=== PATIENT | female | born 1975 | race Caucasian/White ===

== ENCOUNTER 2017-07-18 09:44 | Observation (INO) | payer MEDICAID, SELFPAY ==
[2017-07-18 09:45] VITALS: BP 124/79; PULSE 129; RESP 12; TEMP 36.3; BMI 25.9
[2017-07-18 10:30] LABS: Absolute Lymphocyte Count 1.29 X10^3/ul (0.83-4.51); Absolute Neutrophil Count 11.3 X10^3/uL (2.0-7.7); Basophil# 0.02 X10^3/uL; Basophil% 0.1 % (0-1); Eosinophil# 0.04 X10^3/uL; Eosinophils% 0.3 % (0-5); Hematocrit 38.4 % (37-47); Hemoglobin 12.6 g/dl (12.0-15.0); Lymphocyte # 1.29 X10^3/ul (4.0); Lymphocyte % 9.6 % (19-41); Mean Corp Hgb Conc 32.8 g/gl (32-36); Mean Corpuscular Hgb 29.4 pg (27.0-32.0); Mean Corpuscular Volume 89.5 fL (81-99); Mean Platelet Vol. 10.1 fl (6.2-12.0); Monocyte# 0.84 X10^3/uL; Monocyte% 6.2 % (0-10); Neutrophil # 11.26 X10^3/uL (2.7-7.7); Neutrophil % 83.7 % (47-70); Platelet Count 324 K/mm3 (150-450); RBC Distribution Width CV 13.7 % (11.6-14.6); RBC Distribution Width SD 44.7 fl (35.1-43.9); Red Blood Count 4.29 M/mm3 (4.2-5.4); White Blood Count 13.5 K/mm3 (4.4-11.0)
[2017-07-18 10:38] LABS: POSITIVE COUNT NO; POSITIVE DIFFERENTIAL NO; POSITIVE MORPHOLOGY NO
[2017-07-18 10:50] LABS: Anion Gap 8 (5-15); BUN 7 mg/dL (7-18); BUN/Creat Ratio 8.8 RATIO (10-20); Chloride 104 mmol/L (98-107); EST Glomerular Filtration Rate 84 mL/min (>60); Est Glom Filt Rate - Afr Amer 102 mL/min (>60); Glucose 98 mg/dL (70-110); Potassium 3.9 mmol/L (3.5-5.1); Sodium Level 137 mmol/L (136-145)
--- NOTE | 2017-07-18 12:01 | ED.RN ---
THIS NURSE ATTEMPTED X2 TO OBTAIN BLOOD CULTURES, NO SUCCESS, RAYNE FOLEY,MEDIC, ATTEMPTED NO SUCCESS, LAB CALLED AND NOTIFIED THAT PT NEEDS 2 SETS OF BLOOD CULTURES & LACTIC. LAB WILL SENT SOMEONE TO OBTAIN LABS.
--- NOTE | 2017-07-18 12:09 | ED.RN ---
Addendum entered by Ericka Solomon 07/18/17 13:09: MANNY, FROM LAB OBTAINED CULTURES & LACTIC. Original Note: DR. LANDRY AWARE, NO SUCCESS ON OBTAINING LABS. ARRON FROM LAB PRESENT IN PT'S ROOM TO OBTAIN LABS.
--- NOTE | 2017-07-18 12:14 | ED.VISSUMM ---
- ER Visit Summary Date of Service: 07/18/17 Chief Complaint: Abscess History of Present Illness: The patient is a 42 F who presents with an abscess and redness and pain of her right thigh. 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 About 1 week ago she noticed a red raised painful area on the back of her right thigh. She saw her primary care physician and was started on doxycycline. After several days without improvement she was seen at [facility] emergency department. She is was switched to Keflex and Bactrim. She continues to worsen. Today she began to have some spontaneous purulent drainage. She denies fevers nausea vomiting or systemic symptoms. Physical Examination: Afebrile initial heart rate 129 vitals otherwise unremarkable Moist mucous membranes Heart regular rhythm tachycardia, at the time of my evaluation heart rate 104 Lungs are clear Abdomen soft There is a large area of cellulitis along the posterior right thigh with central fluctuance no active drainage Test Results: X-ray studies notable for white blood cell count of 13.5. Emergency Department Course and Treatment: She was treated with IV fluids and IV vancomycin. Her abscess was locally anesthetized with 1% lidocaine and a cruciate incision made with a #11 blade. Loculations were broken up with curved hemostats and quarter inch packing was placed. Abscess did track several centimeters. I spoke to the hospitalist who agreed to admit. They also requested surgical consultation. Dr. Rangel also evaluated the patient here in the emergency department. Patient will be admitted. At the time of this dictation lactic acid and blood cultures are currently pending. Treatment Plan: [] Disposition: Admit Impression: Thigh abscess with cellulitis Incision and drainage of right thigh abscess This note was generated with [employer] dictation software. It may contain incorrect words, spelling, and punctuation that were not noted in review of the chart prior to signing ED Disposition - Plan for ED Patient: Chief Complaint: Abscess Referrals: Vanessa Silveira DO [Primary Care Provider] -
--- NOTE | 2017-07-18 12:17 | ED.DCSUM_ITS ---
- ER Visit Summary Date of Service: 07/18/17 Chief Complaint: Abscess History of Present Illness: The patient is a 42 F who presents with an abscess and redness and pain of her right thigh. 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 About 1 week ago she noticed a red raised painful area on the back of her right thigh. She saw her primary care physician and was started on doxycycline. After several days without improvement she was seen at [place] emergency department. She is was switched to Keflex and Bactrim. She continues to worsen. Today she began to have some spontaneous purulent drainage. She denies fevers nausea vomiting or systemic symptoms. Physical Examination: Afebrile initial heart rate 129 vitals otherwise unremarkable Moist mucous membranes Heart regular rhythm tachycardia, at the time of my evaluation heart rate 104 Lungs are clear Abdomen soft There is a large area of cellulitis along the posterior right thigh with central fluctuance no active drainage Test Results: X-ray studies notable for white blood cell count of 13.5. Emergency Department Course and Treatment: She was treated with IV fluids and IV vancomycin. Her abscess was locally anesthetized with 1% lidocaine and a cruciate incision made with a #11 blade. Loculations were broken up with curved hemostats and quarter inch packing was placed. Abscess did track several centimeters. I spoke to the hospitalist who agreed to admit. They also requested surgical consultation. Dr. Rangel also evaluated the patient here in the emergency department. Patient will be admitted. At the time of this dictation lactic acid and blood cultures are currently pending. Treatment Plan: [] Disposition: Admit Impression: Thigh abscess with cellulitis Incision and drainage of right thigh abscess This note was generated with [employer] dictation software. It may contain incorrect words, spelling, and punctuation that were not noted in review of the chart prior to signing ED Disposition - Plan for ED Patient: Chief Complaint: Abscess Referrals: Vanessa Silveira DO [Primary Care Provider] -
[2017-07-18] MEDS: 0.9% Normal Saline 1,000 ML 999 ML IV (12:46)
[2017-07-18 12:50] VITALS: BP 111/76; PULSE 78; RESP 16; TEMP 37.2; O2SAT 97
--- NOTE | 2017-07-18 12:52 | CON.PCM_ITS ---
- Consult Date of Consult: 07/18/17 - Reason for Consult Chief Complaint: right posterior leg infection History of Present Illness: 42 y/o WF presents with right posterior leg infection. She states that she sustained it while she was in residential. She states that other residential members had MRSA infections. She denies trauma to that area. She has had multiple skin infections in the past, in various places throughout her body. Denies previous skin infection at the present site. Past Medical History: TOB use Hx of IV drug use Past Surgical History: denies Medications: pepcid neurontin Allergies: Has no known drug allergies Social history: TOB use < 1ppd Hx of IV drug use Review of Systems: General - denies anorexia Cardiovascular denies chest pain Pulmonary denies coughing up blood Gastrointestinal denies blood in stools Neurological denies seizures Genitourinary denies blood in urine Hematological denies spontaneous/prolonged bleeding Skin see HPI Musculoskeletal denies arthritis Endocrine denies diabetes Psychological hx of IV drug use, TOB dependence Physical examination: Vital signs 97.5F HR 69 RR 16 BP 111/66 General WD/WN WF in no apparent distress, alert and oriented, not septic appearing HEENT Normocephalic. EOM intact with sclera clear and no icterus noted. Neck is supple with no jugular venous distention noted. Trachea is midline. Lungs clear to auscultation. normal breath sounds in all lung [place]. No rales/rhonchi/wheezing noted. No labored breathing noted, such as retractions. No cough heard. Heart normal S1 and S2 auscultated. No rubs/clicks/murmurs noted. Abdomen soft and benign. Normal bowel sounds Extremities right posterior leg with large area of cellulitis but no fluctuance - wound opening noted - draining Genitourinary/Rectal deferred Skin see above Neurological no focal deficits Psychological normal affect, patient is calm and appropriate Impression: right posterior leg cellulitis Discussion/Plan: I have discussed the above with the patient. At this point, I do not suspect need for further surgical intervention. Continue treatment with IV antibiotics. Consider evaluation for bacterial endocarditis - as patient has had numerous episodes of this type of infection and hx of IV drug use Will follow patient with you I have answered all questions to the patient?s satisfaction and the patient has no further questions.
[2017-07-18 13:14] LABS: Lactic Acid 0.9 mmol/L (0.4-2.0)
[2017-07-18 13:26] VITALS: BMI 25.5; BMI 25.6
--- NOTE | 2017-07-18 16:00 | NURSING ---
wound photo: right posterior thigh
[2017-07-18] MEDS: Gabapentin 400 MG Capsule PO (16:45)
[2017-07-18 16:53] LABS: Probe Check PASS; Staph aureus DNA By PCR POSITIVE (Negative)
[2017-07-18 16:55] LABS: M R Staph aureus DNA By PCR POSITIVE (Negative)
[2017-07-18 21:02] VITALS: BP 98/51; PULSE 82; RESP 16; TEMP 37.7; O2SAT 98
[2017-07-18] MEDS: Famotidine 20 MG Tablet PO (21:04)
--- NOTE | 2017-07-18 22:27 | PCM.HP.STD ---
Problem List (1) Abscess of right leg Status: Acute History of Present Illness Date of Admission: 07/18/17 Chief Complaint: Abscess right leg The patient is a 42 year old F emergency room at [facility] with chief complaint of a reddened raised area on the back of her right upper leg. Patient has been treated over the past several days with oral antibiotics including Vibramycin, Bactrim, and Keflex. Patient noticed pain and redness and a raised area on the back of her right upper leg approximately a week ago. Patient noted today that it was draining purulent material and came to the emergency room for evaluation. Patient denies any fever or chills. Labs were remarkable for an elevated white blood cell count 13.5, patient was afebrile. Emergency room physician examined the posterior aspect of the right upper leg and there was noted to be erythematous raised area on the posterior portion of the right upper leg with a small opening present draining purulent material. This opening was enlarged and a moderate amount of purulent material was expelled. 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 Lives: With Family Smoking Status: Current every day smoker Tobacco Use: Cigarettes Alcohol: None Drugs: None - *Family History Maternal History Items: Cancer - Breast CA Paternal History Items: Cancer - Prostate cancer Review of Systems Constitutional: Denies: Anorexia, Chills, Fever, Night Sweats, Malaise, Weakness, Weight Change, Fatigue Eyes: Denies: Blurred vision, Cataracts, Conjunctivae Inflammation, Double vision, Drainage, Pain, Redness HEENT: Denies: Difficulty Hearing, Difficulty Swallowing, Dysphasia, Ear Pain, Eye Pain, Hard of Hearing, Head Aches, Hearing Changes Cardiovascular: Denies: Chest Pain, Claudication, Chest Pressure, Chest Tightness, Edema, Heaviness, Palpitations Respiratory: Denies: Cough, Hemoptysis, Pleuritic Pain, Shortness of Breath, Shortness of breath at rest, Shortness of breath upon exertion, Sputum production Gastrointestinal: Denies: Abdominal Pain, Constipation, Diarrhea, Hematemesis, Hematochezia, Nausea, Melena, Vomiting Genitourinary: Denies: Dysuria, Frequency, Hematuria, Hesitancy, Urgency Musculoskeletal: Reports: Leg Pain - Patient complains of pain and tenderness in the posterior portion of the right upper leg ?1 week. Denies: Joint Pain, Joint stiffness, Joint swelling Skin: Reports: - - Redness, swelling, and drainage over the posterior portion of the right upper leg. Denies: Dryness, Pruritis, Rash Neurological: Denies: Blurred vision, Double vision, Slurred speech, Difficulty swallowing, Focal weakness, Numbness, Tingling Psychiatric: Denies: Anxiety, Depression, Homicidal Ideations, Suicidal Ideations Endocrine: Denies: Change in Body Habitus, Heat/ Cold Intolerance, Polydipsia, Polyuria Hematologic/ Lymphatic: Denies: Adenopathy, Anemia, Easy Bruising, Easy Bleeding, Petechiae, Purpura VTE Information - Inpt Only VTE Present on Admission: No VTE Mechan Device Prophylaxis: None VTE Pharm Prophylaxis ordered?: No Reason prophylaxis not ordered:: Treatment Not Indicated - low risk for VTE Patient Problems: Active and Suspected Problems Abscess of right leg (Acute) - Physical Exam General: Alert, Oriented x3, Cooperative, No apparent distress, Well developed, Well nourished HEENT: Atraumatic, PERRLA, EOMI, Normocephalic Oral: Moist Mucosa Neck: Supple, No JVD, Negative Carotid Bruits, No Nuchal Rigidity, Trachea Midline, Thyroid Normal Size and Texture Lungs: Clear to auscultation, Normal air movement, No rhonchi, No wheeze, No rales Cardiovascular: Regular rate, Regular Rhythm, Normal S1, Normal S2, No murmurs, No Ectopic Activity, PMI Normal, No rub noted, No Gallop Abdomen: Bowel Sounds Present, Soft, Non Tender, Non-Distended, No hernias noted Extremities: Capillary Refill Less than 3 Seconds, Edema - Edema over the posterior aspect of the right upper leg Skin: Ulcer/ Wound - There is a wound present over the posterior aspect of the right upper leg which has packing presently in the wound-this is 3 cm in diameter, Rash Present - There is a reddened area that is indurated over the posterior aspect of the right upper leg Musculoskeletal: No Tenderness to Palpation of Joints or Extremities Neurological: Cranial nerves II-XII grossly intact, Neuro grossly intact, Sensory exam intact to light touch and pain, Coordination normal Psych/Mental Status: Normal Affect, Appropriate, Alert and oriented to time, place, person, mood and affect Vital Signs Temp Pulse Resp BP Pulse Ox 99.9 F H 82 16 98/51 L 98 07/18/17 21:02 07/18/17 21:02 07/18/17 21:02 07/18/17 21:02 07/18/17 21:02 Oxygen Delivery Method Room Air Weight: 74 kg Body Mass Index (BMI) 25.5 Laboratory Tests Past 24 Hrs 07/18/17 07/18/17 12:35 15:20 Lactic Acid 0.9 S.aureus Protein A PCR POSITIVE H MRSA (PCR) POSITIVE H Assessment/Plan Active and Suspected Problems Abscess of right leg (Acute) #1 abscess of the posterior area of the right upper leg-suspected to be MRSA, patient will be admitted, given IV vancomycin, patient was seen by surgery in the emergency room, they will follow the patient's care, labs will be repeated tomorrow, cultures were obtained Code Visit Inpatient E&M: 02270 In Hosp L3
[2017-07-19 03:00] VITALS: BP 98/52; PULSE 61; RESP 16; TEMP 36.8; O2SAT 98
[2017-07-19 06:29] LABS: Absolute Lymphocyte Count 1.92 X10^3/ul (0.83-4.51); Absolute Neutrophil Count 5.4 X10^3/uL (2.0-7.7); Basophil# 0.02 X10^3/uL; Basophil% 0.2 % (0-1); Eosinophil# 0.12 X10^3/uL; Eosinophils% 1.4 % (0-5); Hematocrit 36.7 % (37-47); Hemoglobin 11.9 g/dl (12.0-15.0); Lymphocyte # 1.92 X10^3/ul (4.0); Mean Corp Hgb Conc 32.4 g/gl (32-36); Mean Corpuscular Hgb 29.2 pg (27.0-32.0); Mean Corpuscular Volume 90.2 fL (81-99); Mean Platelet Vol. 10.3 fl (6.2-12.0); Monocyte# 0.87 X10^3/uL; Monocyte% 10.4 % (0-10); Neutrophil # 5.38 X10^3/uL (2.7-7.7); Neutrophil % 64.8 % (47-70); Platelet Count 316 K/mm3 (150-450); RBC Distribution Width CV 13.6 % (11.6-14.6); Red Blood Count 4.07 M/mm3 (4.2-5.4); White Blood Count 8.3 K/mm3 (4.4-11.0)
[2017-07-19 06:36] LABS: POSITIVE COUNT NO; POSITIVE DIFFERENTIAL NO; POSITIVE MORPHOLOGY NO
[2017-07-19 06:42] LABS: Anion Gap 7 (5-15); BUN 8 mg/dL (7-18); BUN/Creat Ratio 12.8 RATIO (10-20); Calcium,Total 8.6 mg/dL (8.5-10.1); Chloride 107 mmol/L (98-107); Creatinine, Serum 0.63 mg/dL (0.55-1.02); EST Glomerular Filtration Rate 112 mL/min (>60); Est Glom Filt Rate - Afr Amer 135 mL/min (>60); Estimated Creatinine Clearance 115.43 ml/min; Glucose 97 mg/dL (70-110); Potassium 4.4 mmol/L (3.5-5.1); Sodium Level 138 mmol/L (136-145)
--- NOTE | 2017-07-19 07:16 | PCM.PN.SRG ---
Patient Problems: Active and Suspected Problems Abscess of right leg (Acute) Subjective: patient with less pain in the area, examination reveals that area has greatly decreased in size of erythema - Physical Exam Vital Signs Temp Pulse Resp BP Pulse Ox 98.3 F 61 16 98/52 L 98 07/19/17 03:00 07/19/17 03:00 07/19/17 03:00 07/19/17 03:00 07/19/17 03:00 Oxygen Delivery Method Room Air Weight: 74 kg Body Mass Index (BMI) 25.5 Intake and Output for Last 24 Hours 07/17/17 07/18/17 07/19/17 23:59 23:59 23:59 Intake Total 1190 / 1190 Balance 1190 / 1190 Laboratory Tests Past 24 Hrs 07/18/17 07/18/17 07/19/17 12:35 15:20 06:10 WBC RBC Hgb Hct MCV MCH MCHC RDW RDW Differential Plt Count MPV Immature Gran % (Auto) Neut % (Auto) Lymph % (Auto) [place] % (Auto) Eos % (Auto) Baso % (Auto) Absolute Neuts (auto) Absolute Lymphs (auto) Total Counted Sodium 138 Potassium 4.4 Chloride 107 Carbon Dioxide 24.0 Anion Gap 7 BUN 8 Creatinine 0.63 Estim Creat Clear Calc 115.43 Est GFR (MDRD) Af Amer 135 Est GFR (MDRD) Non-Af 112 BUN/Creatinine Ratio 12.8 Glucose 97 Lactic Acid 0.9 Calcium 8.6 S.aureus Protein A PCR POSITIVE H MRSA (PCR) POSITIVE H 07/19/17 06:10 WBC 8.3 RBC 4.07 L Hgb 11.9 L Hct 36.7 L MCV 90.2 MCH 29.2 MCHC 32.4 RDW 13.6 RDW Differential 44.0 H Plt Count 316 MPV 10.3 Immature Gran % (Auto) 0.200 Neut % (Auto) 64.8 Lymph % (Auto) 23.0 [place] % (Auto) 10.4 H Eos % (Auto) 1.4 Baso % (Auto) 0.2 Absolute Neuts (auto) 5.4 Absolute Lymphs (auto) 1.92 Total Counted Not Reportable Sodium Potassium Chloride Carbon Dioxide Anion Gap BUN Creatinine Estim Creat Clear Calc Est GFR (MDRD) Af Amer Est GFR (MDRD) Non-Af BUN/Creatinine Ratio Glucose Lactic Acid Calcium S.aureus Protein A PCR MRSA (PCR) Assessment/Plan Active and Suspected Problems Abscess of right leg (Acute) Impression: abscess/cellulitis with MRSA of right leg Plan: continue observation
[2017-07-19 09:17] VITALS: BP 101/60; PULSE 70; RESP 18; TEMP 36.6; O2SAT 98
[2017-07-19] MEDS: Gabapentin 400 MG Capsule PO ×3 (09:19→17:45)
[2017-07-19] MEDS: Famotidine 20 MG Tablet PO ×2 (09:19→21:19)
--- NOTE | 2017-07-19 15:03 | PCM.HP.ID ---
Problem List (1) Abscess of right leg Status: Acute Reason for Consult: mrsa abscess Consulted by: Dr. Rosenthal History of Present Illness: The patient is a 42 year old F with h/o hep C and IVDU in remission who presented with 1-2 weeks of R posterior thigh redness, pain, swelling. Had been started on doxy with no improvement by PCP. On 07/16 developed spontaneous purulent discharge. Went to ED here, I&D done, admitted on iv vanc. Surg consulted. Drainage, redness, and swelling much improved. She gets abscesses typically 2-3 times a year. Follows with ID in [place] and was actually in the middle of hep C treatment before recent time in half[place]way. Has done decolonization in the past. Full ROS performed and neg except as noted above. Some headache. - Medical History Allergies/Adverse Reactions: Allergies No Known Allergies Allergy (Verified 07/18/17 09:47) Home Medications: Ambulatory Orders Medication Instructions Recorded Famotidine [Pepcid] 20 mg PO BID 07/18/17 Gabapentin [Neurontin] 400 mg PO TID 07/18/17 - Social History SMOKING STATUS:: Current every day smoker Vital Signs Temp Pulse Resp BP Pulse Ox 97.8 F 70 18 101/60 98 07/19/17 09:17 07/19/17 09:17 07/19/17 09:17 07/19/17 09:17 07/19/17 09:17 Oxygen Delivery Method Room Air Weight: 74 kg Body Mass Index (BMI) 25.5 Laboratory Tests Past 24 Hrs 07/18/17 07/19/17 07/19/17 15:20 06:10 06:10 WBC 8.3 RBC 4.07 L Hgb 11.9 L Hct 36.7 L MCV 90.2 MCH 29.2 MCHC 32.4 RDW 13.6 RDW Differential 44.0 H Plt Count 316 MPV 10.3 Immature Gran % (Auto) 0.200 Neut % (Auto) 64.8 Lymph % (Auto) 23.0 [place] % (Auto) 10.4 H Eos % (Auto) 1.4 Baso % (Auto) 0.2 Absolute Neuts (auto) 5.4 Absolute Lymphs (auto) 1.92 Total Counted Not Reportable Sodium 138 Potassium 4.4 Chloride 107 Carbon Dioxide 24.0 Anion Gap 7 BUN 8 Creatinine 0.63 Estim Creat Clear Calc 115.43 Est GFR (MDRD) Af Amer 135 Est GFR (MDRD) Non-Af 112 BUN/Creatinine Ratio 12.8 Glucose 97 Calcium 8.6 S.aureus Protein A PCR POSITIVE H MRSA (PCR) POSITIVE H - Other Studies Radiology: [] reviewed Other Studies: [] Route of nutrition/ use of supplements: [] Nutritional Intake: [] IV Site: [] Watt Catheter: [] - Physical Exam General: Alert, Oriented x3, Cooperative HEENT: Atraumatic, PERRLA, EOMI Neck: Supple, No Nodes Lungs: Clear to auscultation, Normal air movement Cardiovascular: Regular rate, Regular Rhythm, No murmurs Abdomen: Bowel Sounds Present, Soft, Non Tender, Non-Distended Skin: - - R posterior thigh with resolving abscess, minimal current drainage/redness/induration IV Site: Peripheral, without redness Musculoskeletal: No Tenderness to Palpation of Joints or Extremities Neurological: Cranial nerves II-XII grossly intact - Assessment/Plan Antibiotics: [] Assessment/Plan: [] Active and Suspected Problems Abscess of right leg (Acute) MRSA RLE abscess - improving s/p I&D in ED. Cont vanc, plan on d/c home on po abx soon. No need for further surgical debridement based on exam. Thank you, will follow. D/w continuous pillowcase cutter. She should follow up with her ID physician in [place].
--- NOTE | 2017-07-19 15:08 | CON.PCM_ITS ---
Problem List (1) Abscess of right leg Status: Acute Reason for Consult: mrsa abscess Consulted by: Dr. Rosenthal History of Present Illness: The patient is a 42 year old F with h/o hep C and IVDU in remission who presented with 1-2 weeks of R posterior thigh redness, pain, swelling. Had been started on doxy with no improvement by PCP. On 07/16 developed spontaneous purulent discharge. Went to ED here, I&D done, admitted on iv vanc. Surg consulted. Drainage, redness, and swelling much improved. She gets abscesses typically 2-3 times a year. Follows with ID in [place] and was actually in the middle of hep C treatment before recent time in assisted. Has done decolonization in the past. Full ROS performed and neg except as noted above. Some headache. - Medical History Allergies/Adverse Reactions: Allergies No Known Allergies Allergy (Verified 07/18/17 09:47) Home Medications: Ambulatory Orders Medication Instructions Recorded Famotidine [Pepcid] 20 mg PO BID 07/18/17 Gabapentin [Neurontin] 400 mg PO TID 07/18/17 - Social History SMOKING STATUS:: Current every day smoker Vital Signs Temp Pulse Resp BP Pulse Ox 97.8 F 70 18 101/60 98 07/19/17 09:17 07/19/17 09:17 07/19/17 09:17 07/19/17 09:17 07/19/17 09:17 Oxygen Delivery Method Room Air Weight: 74 kg Body Mass Index (BMI) 25.5 Laboratory Tests Past 24 Hrs 07/18/17 07/19/17 07/19/17 15:20 06:10 06:10 WBC 8.3 RBC 4.07 L Hgb 11.9 L Hct 36.7 L MCV 90.2 MCH 29.2 MCHC 32.4 RDW 13.6 RDW Differential 44.0 H Plt Count 316 MPV 10.3 Immature Gran % (Auto) 0.200 Neut % (Auto) 64.8 Lymph % (Auto) 23.0 [place] % (Auto) 10.4 H Eos % (Auto) 1.4 Baso % (Auto) 0.2 Absolute Neuts (auto) 5.4 Absolute Lymphs (auto) 1.92 Total Counted Not Reportable Sodium 138 Potassium 4.4 Chloride 107 Carbon Dioxide 24.0 Anion Gap 7 BUN 8 Creatinine 0.63 Estim Creat Clear Calc 115.43 Est GFR (MDRD) Af Amer 135 Est GFR (MDRD) Non-Af 112 BUN/Creatinine Ratio 12.8 Glucose 97 Calcium 8.6 S.aureus Protein A PCR POSITIVE H MRSA (PCR) POSITIVE H - Other Studies Radiology: [] reviewed Other Studies: [] Route of nutrition/ use of supplements: [] Nutritional Intake: [] IV Site: [] Watt Catheter: [] - Physical Exam General: Alert, Oriented x3, Cooperative HEENT: Atraumatic, PERRLA, EOMI Neck: Supple, No Nodes Lungs: Clear to auscultation, Normal air movement Cardiovascular: Regular rate, Regular Rhythm, No murmurs Abdomen: Bowel Sounds Present, Soft, Non Tender, Non-Distended Skin: - - R posterior thigh with resolving abscess, minimal current drainage/ redness/induration IV Site: Peripheral, without redness Musculoskeletal: No Tenderness to Palpation of Joints or Extremities Neurological: Cranial nerves II-XII grossly intact - Assessment/Plan Antibiotics: [] Assessment/Plan: [] Active and Suspected Problems Abscess of right leg (Acute) MRSA RLE abscess - improving s/p I&D in ED. Cont vanc, plan on d/c home on po abx soon. No need for further surgical debridement based on exam. Thank you, will follow. 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 She should follow up with her ID physician in [place].
--- NOTE | 2017-07-19 15:25 | PN_ITS ---
Patient Problems: Active and Suspected Problems Abscess of right leg (Acute) Subjective: Patient seen and examined today, white blood cell count is now normal at 8.3, area on the posterior right upper leg appears less reddened today. I had infectious diseases see the patient. T-max since admission was 99.9 - Physical Exam General: Alert, Oriented x3, Cooperative, No apparent distress, Well developed, Well nourished HEENT: Atraumatic, PERRLA, EOMI, Normocephalic Oral: Moist Mucosa Neck: Supple, Trachea Midline, Thyroid Normal Size and Texture Lungs: Clear to auscultation, Normal air movement, No rhonchi, No wheeze, No rales Cardiovascular: Regular rate, No murmurs Abdomen: Bowel Sounds Present, Soft, Non Tender Extremities: Capillary Refill Less than 3 Seconds Skin: - - There is a reddened area over the posterior right upper leg that is approximately 8-10 cm in diameter, there is a centrally located wound within this area Musculoskeletal: No Tenderness to Palpation of Joints or Extremities Neurological: Cranial nerves II-XII grossly intact, Muscle tone normal, Sensory exam intact to light touch and pain Psych/Mental Status: Normal Affect, Appropriate, Alert and oriented to time, place, person, mood and affect Vital Signs Temp Pulse Resp BP Pulse Ox 97.8 F 70 18 101/60 98 07/19/17 09:17 07/19/17 09:17 07/19/17 09:17 07/19/17 09:17 07/19/17 09:17 Oxygen Delivery Method Room Air Weight: 74 kg Body Mass Index (BMI) 25.5 Intake and Output for Last 24 Hours 07/17/17 07/18/17 07/19/17 23:59 23:59 23:59 Intake Total 1190 / 1190 845 / 845 Balance 1190 / 1190 845 / 845 Laboratory Tests Past 24 Hrs 07/18/17 07/19/17 07/19/17 15:20 06:10 06:10 WBC 8.3 RBC 4.07 L Hgb 11.9 L Hct 36.7 L MCV 90.2 MCH 29.2 MCHC 32.4 RDW 13.6 RDW Differential 44.0 H Plt Count 316 MPV 10.3 Immature Gran % (Auto) 0.200 Neut % (Auto) 64.8 Lymph % (Auto) 23.0 [place] % (Auto) 10.4 H Eos % (Auto) 1.4 Baso % (Auto) 0.2 Absolute Neuts (auto) 5.4 Absolute Lymphs (auto) 1.92 Total Counted Not Reportable Sodium 138 Potassium 4.4 Chloride 107 Carbon Dioxide 24.0 Anion Gap 7 BUN 8 Creatinine 0.63 Estim Creat Clear Calc 115.43 Est GFR (MDRD) Af Amer 135 Est GFR (MDRD) Non-Af 112 BUN/Creatinine Ratio 12.8 Glucose 97 Calcium 8.6 S.aureus Protein A PCR POSITIVE H MRSA (PCR) POSITIVE H Assessment/Plan Active and Suspected Problems Abscess of right leg (Acute) #1 abscess of the posterior area of the right upper leg-from MRSA-continue vancomycin, await culture results Code Visit Inpatient E&M: 24423 Subs Hosp L2
--- NOTE | 2017-07-19 15:31 | CASEMGMT ---
RN CM Face to Face with patient for initial transition planning/care coordination assessment. RN CM introduced self and role at [facility]. Patient lying in bed, alert and oriented. Patient willing to participate in assessment and is able to answer all questions appropriately. Care providers, pharmacy, and demographics verified. See link attached. Patient wishes to discharge home and discussed possible home health pending type of wound care. RN CM will monitor for need of HHC. Patient states she has no further needs or concerns at this time. CM to follow for discharge planning needs that may arise. Disposition Plan: Patient to discharge home with family support and follow-up plans in place. Will monitor to determine if HHC necessary
[2017-07-19 16:08] VITALS: BP 108/72; PULSE 62; RESP 16; TEMP 36.7; O2SAT 100
[2017-07-19 21:24] VITALS: BP 93/57; PULSE 69; RESP 16; TEMP 36.4; O2SAT 98
[2017-07-20 03:30] VITALS: BP 92/51; PULSE 62; RESP 20; TEMP 36; O2SAT 98
[2017-07-20 09:41] VITALS: BP 111/66; PULSE 68; RESP 14; TEMP 35.9; O2SAT 100
[2017-07-20] MEDS: Gabapentin 400 MG Capsule PO ×2 (09:47→14:54)
[2017-07-20] MEDS: Famotidine 20 MG Tablet PO (09:47)
--- NOTE | 2017-07-20 10:39 | NURSING ---
wound photo: right posterior thigh/gluteal crease
--- NOTE | 2017-07-20 11:02 | PN.ID_ITS ---
Patient Problems: Active and Suspected Problems Abscess of right leg (Acute) Subjective: Feeling better, no fever, no drainage - Physical Exam General: Alert, Cooperative Lungs: Clear to auscultation, Normal air movement Cardiovascular: Regular rate, Regular Rhythm Abdomen: Soft, Non Tender, Non-Distended Skin: Ulcer/ Wound - improving, no drainage Vital Signs Temp Pulse Resp BP Pulse Ox 96.6 F L 68 14 111/66 100 07/20/17 09:41 07/20/17 09:41 07/20/17 09:41 07/20/17 09:41 07/20/17 09:41 Oxygen Delivery Method Room Air Weight: 74 kg Body Mass Index (BMI) 25.5 Intake and Output for Last 24 Hours 07/18/17 07/19/17 07/20/17 23:59 23:59 23:59 Intake Total 1190 / 1190 1639 / 1639 819 / 819 Balance 1190 / 1190 1639 / 1639 819 / 819 Microbiology Past 72 Hours 07/18/17 12:35 Blood Culture - Preliminary Blood Culture (Wb) - Anticubital Left No growth in 48 hours. Route of nutrition/ use of supplements: [] Nutritional Intake: [] IV Site: [] Watt Catheter: [] - Assessment/Plan Antibiotics: [] Assessment/Plan: [] Active and Suspected Problems Abscess of right leg (Acute) MRSA RLE abscess - improving s/p I&D in ED. Ok for d/c home on po bactrim for 5 more days. will follow. 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 She should follow up with her ID physician in [place].
[2017-07-20 14:53] VITALS: BP 105/69; PULSE 77; RESP 16; TEMP 35.8; O2SAT 100
[2017-07-20] MEDS: Smz/Tmp Ds Tablet 1 TABLET PO (14:54)
--- NOTE | 2017-07-20 16:08 | PCM.DC ---
- Discharge Diagnoses Current Active Problems: Current Active and Chronic Problems Abscess of right leg (Acute) You will use the following diet at home:: No restrictions Your food should be the consistency of: Regular Your liquids should be the consistency of: Regular/Thin Discharge Activity: Return to Normal Activity Weight Bearing Status: Full weight bearing Additional Instructions: use antibacterial liquid soap daily to shower Allergies/Adverse Reactions: Allergies No Known Allergies Allergy (Verified 07/18/17 09:47) Medications to take at Discharge Famotidine [Pepcid] 20 mg PO BID 07/18/17 Gabapentin [Neurontin] 400 mg PO TID 07/18/17 Smz/Tmp Ds [Bactrim Ds] 1 tab PO BID #14 tab 07/20/17 The following prescriptions were given: Smz/Tmp Ds [Bactrim Ds] 1 tab PO BID #14 tab Primary Care Physician: Vanessa Silveira DO [Primary Care Provider] - Please follow up with your Primary Care Physician in: in one week
--- NOTE | 2017-07-20 18:09 | PN.SURG_ITS ---
Subjective: patient feeling better, less pain in the posterior thigh area - Physical Exam General: Alert, Oriented x3 Extremities: - - right posterior thigh-decreased erythema and decreased induration. The packing was removed yesterday. There was serous, slightly purulent drainage from the incision. Minimal amount of fluid was expressed. The dressing was changed. Vital Signs Temp Pulse Resp BP Pulse Ox 96.4 F L 77 16 105/69 100 07/20/17 14:53 07/20/17 14:53 07/20/17 14:53 07/20/17 14:53 07/20/17 14:53 Oxygen Delivery Method Room Air Weight: 74 kg Body Mass Index (BMI) 25.5 Intake and Output for Last 24 Hours 07/18/17 07/19/17 07/20/17 23:59 23:59 23:59 Intake Total 1190 / 1190 1639 / 1639 1133 / 1133 Balance 1190 / 1190 1639 / 1639 1133 / 1133 Microbiology Past 72 Hours 07/18/17 12:35 Blood Culture - Preliminary Blood Culture (Wb) - Anticubital Left No growth in 48 hours. Assessment/Plan status post incision and drainage of right posterior thigh abscess-MRSA history- patient doing well. Recommend dressings be changed as needed. Patient follow- up with our office as needed. Patient will be discharged later today. Per medicine service.
--- NOTE | 2017-07-21 09:58 | PCM.DC.SUM ---
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 Patient was treated with IV vancomycin, seen in consultation by infectious diseases and surgery. Over the next 48 hours, this area appeared to improve with less drainage, infectious diseases felt the patient could be discharged home on oral antibiotics. On 07/20/17, patient was seen and examined and felt to be in stable condition for discharge home Discharge Activity: Return to Normal Activity Weight Bearing Status: Full weight bearing Home Medications: Medications to take at Discharge Famotidine [Pepcid] 20 mg PO BID 07/18/17 Gabapentin [Neurontin] 400 mg PO TID 07/18/17 Smz/Tmp Ds [Bactrim Ds] 1 tab PO BID #14 tab 07/20/17 Following Prescrptions Were Given to Patient: Smz/Tmp Ds [Bactrim Ds] 1 tab PO BID #14 tab Primary Care Physician: Vanesas Silveira DO [Primary Care Provider] - Please follow up with your Primary Care Physician in: in one week Disposition: Home Minutes spent on discharge:: 32 Patient Condition:: Stable Meaningful Use Info Meaningful Use Diagnoses (Choose all that apply): None applicable Code Visit Inpatient E&M: 11601 Disch Hosp
--- NOTE | 2017-07-21 10:01 | DS.PCM_ITS ---
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 Patient was treated with IV vancomycin, seen in consultation by infectious diseases and surgery. Over the next 48 hours, this area appeared to improve with less drainage, infectious diseases felt the patient could be discharged home on oral antibiotics. On 07/20/17, patient was seen and examined and felt to be in stable condition for discharge home Discharge Activity: Return to Normal Activity Weight Bearing Status: Full weight bearing Home Medications: Medications to take at Discharge Famotidine [Pepcid] 20 mg PO BID 07/18/17 Gabapentin [Neurontin] 400 mg PO TID 07/18/17 Smz/Tmp Ds [Bactrim Ds] 1 tab PO BID #14 tab 07/20/17 Following Prescrptions Were Given to Patient: Smz/Tmp Ds [Bactrim Ds] 1 tab PO BID #14 tab Primary Care Physician: Vanessa Silveira DO [Primary Care Provider] - Please follow up with your Primary Care Physician in: in one week Disposition: Home Minutes spent on discharge:: 32 Patient Condition:: Stable Meaningful Use Info Meaningful Use Diagnoses (Choose all that apply): None applicable Code Visit Inpatient E&M: 60917 Disch Hosp
== END 2017-07-20 16:39 | disposition home or self-care (01) | DRG 278 ==
LOC: ED 10:13 → MS3 12:54
PROVIDERS: Admitting Provider Internal Medicine; Emergency Provider Emergency Medicine; Family Provider Family Medicine; PCP Family Medicine; Visit Provider Internal Medicine
DX: L02.415 Cutaneous abscess of right lower limb (principal); B95.62 Methicillin resistant Staphylococcus aureus infection as the cause of diseases classified elsewhere; L03.115 Cellulitis of right lower limb; F17.210 Nicotine dependence, cigarettes, uncomplicated; Z79.899 Other long term (current) drug therapy; Z86.19 Personal history of other infectious and parasitic diseases
CPT/HCPCS: 10060; 36415; 80048; 83605; 85025; 87040; 87070; 87077; 87186; 87205; 87640; 99218; 99284; 99406; J7030; J7050; A4216; G0378